=== PATIENT | male | born 1965 | race Caucasian/White ===

== ENCOUNTER 2023-01-01 22:21 | Inpatient (IN) | payer OTHER, SELFPAY ==
[2023-01-01 22:22] VITALS: BP 103/76; PULSE 93; RESP 15; TEMP 36.1; O2SAT 95; BMI 29.8
--- NOTE | 2023-01-01 22:44 | EX.ED.DYSGE1 ---
HPI History of Present Illness Chief Complaint: Hyperglycemia Narrative Narrative: 57-year-old male past medical history of hypertension and diabetes presents with his because of elevated blood sugars. He states he usually does not check his blood sugars but has felt fatigued over the last few days. Additionally, he had 1 episode of nausea and vomiting today. He did check his blood sugar and it read high. He waited about an hour, ate dinner, took his medication as he takes metformin to 1000 mg twice a day, then rechecked his blood sugars and it was down to the 600s. States he is mildly nauseated, but has not vomited since. He had an episode of loose stools today. He presents because of his elevated blood sugars. He states he does not take insulin for his diabetes, but does not check his blood sugars regularly because he does not like to prick his fingers and he has tough skin on his hands. [facility] Medical History Diabetes Hypertension Home Medications hydrochlorothiazide 12.5 mg tablet 12.5 mg PO DAILY 01/01/23 [History Last Taken Unknown] lisinopril 20 mg tablet 20 mg PO DAILY 01/01/23 [History Last Taken Unknown] metformin 500 mg tablet,extended release 24 hr 1,000 mg PO BID 01/01/23 [History Last Taken Unknown] Allergy/AdvReac Type Severity Reaction Status Date / Time No Known Allergies Allergy Verified 01/01/23 22:27 Social History Smoking Status: Current every day smoker tobacco type: cigarettes ROS ROS ED ROS Narrative Constitutional: No fever, no chills. Positive fatigue. HEENT: No sore throat. No neck pain. No loss of vision. No rhinorrhea. Cardiovascular: No chest pain. No palpitations. No pedal edema. Respiratory: No cough, no shortness of breath. Abdominal: No abdominal pain. 1 episode of nausea and vomiting today, no hematemesis. Positive loose stools today. Genitourinary: No dysuria. No hematuria. Musculoskeletal: No myalgias. No arthralgias. Neurologic: No headaches. No dizziness. No lightheadedness. Skin: No rash. No change in color. Psychiatric: No depression. No anxiety. EXAM Physical Exam Narrative Exam Narrative: Afebrile. Vital signs noted. HEENT: Normocephalic. Atraumatic. PERRL, EOMI. Neck soft and supple. No point tenderness or step off. Cardiovascular: Regular rate and rhythm. No murmurs, rubs, or gallops appreciated. Respiratory: No tachypnea. Lungs clear to auscultation bilaterally. Gastrointestinal: Abdomen soft, nontender, with normoactive bowel sounds. No rebound or guarding. Neurological: Awake. Alert. Nonfocal, nonlateralizing. Skin: No rash. Normal color. No pallor. Musculoskeletal: No pedal edema. Full range of motion extremities. Const Vital Signs: 01/01/23 22:22 01/01/23 22:39 01/02/23 00:41 Temperature 96.9 F L Temperature Source Temporal Pulse Rate 93 82 Respiratory Rate 15 16 Respiratory Effort Normal Non-Labored Respiratory Pattern Normal Blood Pressure 103/76 142/68 H Blood Pressure Mean 85 92 Pulse Ox 95 99 Oxygen Delivery Method Room Air Room Air MDM MDM MDM Narrative Medical decision making narrative: I do feel that the patient is having an episode of diabetic hyperglycemia. He did not do any diet modification recently and never checks his blood sugars. He may be a candidate for constant glucose monitoring with a new systems that are electronic and inserted on the arm or other parts of the body. Today, he will be bolused 2 L of normal saline intravenously and I will check a CBC and CMP. I will only add a acetone if necessary if he has an elevated anion gap, and I will check a urinalysis as well. He was instructed on diet modification. I reviewed his laboratory work he does have a slightly elevated white count of 17.7 which I think is nonspecific, hemoglobin normal at 14.8, hematocrit 43.6, platelet count normal at 244. His sodium is low at 127 but I think this is secondary to his glucose being elevated at 519 on his BMP. He has a potassium of 6.1, but this is hemolyzed. Repeat will be drawn and is pending. In review of his EKG interpreted by myself shows normal sinus rhythm at 73 bpm without ectopy or acute ST changes. Minimally peaked T waves. I do not feel that calcium gluconate is indicated however. He will be given 10 units of insulin for his elevated sugar and the hyperkalemia. After a bolus of IV fluids, his blood sugars in the 400s/482 by fingerstick. His urinalysis is negative for infection or ketones, I do not feel that he is in a diabetic ketoacidosis. Additionally, he has a normal anion gap of 8. Of significance is his elevated creatinine of 3.85. There is no prior to compare. Given his hyperglycemia, hyperkalemia, and acute kidney injury, I do feel that he requires admission. Patient will be discussed with Dr. Ho for admission. Patient is in stable condition. History & Record Review Discussion w/independent historian: Patient and Family Additional record(s) reviewed:: No prior records Lab Data Attestation: I reviewed the patient's lab results. Labs: Laboratory Results - last 24 hr 01/01/23 01/01/23 01/01/23 00:05 22:52 23:08 WBC 17.7 H RBC 4.88 Hgb 14.8 Hct 43.6 MCV 89.3 MCH 30.3 MCHC 33.9 RDW Std Deviation 47.5 H RDW Coeff of Del 14.6 Plt Count 244 MPV 12.8 H Immature Gran % (Auto) 0.600 Neut % (Auto) 86.9 H Lymph % (Auto) 8.1 L [place] % (Auto) 4.1 Eos % (Auto) 0.1 Baso % (Auto) 0.2 Absolute Neuts (auto) 15.4 H Absolute Lymphs (auto) 1.44 Nucleated RBC % 0 Sodium 127 L Potassium 5.4 H 6.1 H* Chloride 94 L Carbon Dioxide 25.0 Anion Gap 8 BUN 87 H Creatinine 3.85 H Estim Creat Clear Calc 21.17 Est GFR (MDRD) Af Amer 21 L Est GFR (MDRD) Non-Af 17 L BUN/Creatinine Ratio 22.6 H Glucose 519 H* Calcium 9.4 Total Bilirubin 0.30 AST 20 ALT 33 Alkaline Phosphatase 103 Total Protein 7.6 Albumin 3.6 Globulin 4.0 Albumin/Globulin Ratio 0.9 Urine Color Urine Clarity Urine pH Ur Specific [place] Urine Protein Urine Glucose (UA) Urine Ketones Urine Occult Blood Urine Nitrite Urine Bilirubin Urine Urobilinogen Ur Leukocyte Esterase Urine RBC Urine WBC Ur Squamous Epith Cells Urine Bacteria Urine Mucus POC Glucose > 500 H* 01/01/23 01/02/23 23:10 00:07 WBC RBC Hgb Hct MCV MCH MCHC RDW Std Deviation RDW Coeff of Del Plt Count MPV Immature Gran % (Auto) Neut % (Auto) Lymph % (Auto) [place] % (Auto) Eos % (Auto) Baso % (Auto) Absolute Neuts (auto) Absolute Lymphs (auto) Nucleated RBC % Sodium Potassium Chloride Carbon Dioxide Anion Gap BUN Creatinine Estim Creat Clear Calc Est GFR (MDRD) Af Amer Est GFR (MDRD) Non-Af BUN/Creatinine Ratio Glucose Calcium Total Bilirubin AST ALT Alkaline Phosphatase Total Protein Albumin Globulin Albumin/Globulin Ratio Urine Color Yellow Urine Clarity Clear Urine pH 5.0 Ur Specific [place] 1.015 Urine Protein 30 H Urine Glucose (UA) 1000 H Urine Ketones Negative Urine Occult Blood 50 H Urine Nitrite Negative Urine Bilirubin Negative Urine Urobilinogen Normal Ur Leukocyte Esterase Negative Urine RBC 0 SEEN Urine WBC 0 SEEN Ur Squamous Epith Cells 0 SEEN Urine Bacteria 0 SEEN Urine Mucus 0 SEEN POC Glucose 482 H* Discharge Plan Dx/Rx/DC Orders Clinical Impression: Hyperglycemia, Acute kidney injury, Hyperkalemia Disposition Disposition: Acute Care Hospital [facility]
[2023-01-01 22:58] LABS: Absolute Lymphocyte Count 1.44 X10^3/uL (0.83-4.51); Absolute Neutrophil Count 15.4 X10^3/uL (2.0-7.7); Basophil# 0.03 X10^3/uL; Basophil% 0.2 % (0-1); Eosinophil# 0.01 X10^3/uL; Eosinophils% 0.1 % (0-5); Hematocrit 43.6 % (40-54); Hemoglobin 14.8 g/dL (13.0-16.5); Lymphocyte # 1.44 X10^3/ul (0.83-4.51); Lymphocyte % 8.1 % (19-41); Mean Corp Hgb Conc 33.9 g/dL (32-36); Mean Corpuscular Hgb 30.3 pg (27.0-32.0); Mean Corpuscular Volume 89.3 fL (80-94); Mean Platelet Vol. 12.8 fl (6.2-12.0); Monocyte# 0.72 X10^3/uL; Monocyte% 4.1 % (0-10); NRBC Flagged by Analyzer 0 % (0-5); Neutrophil # 15.42 X10^3/uL (2.7-7.7); Neutrophil % 86.9 % (47-70); Platelet Count 244 K/mm3 (150-450); RBC Distribution Width CV 14.6 % (11.6-14.6); RBC Distribution Width SD 47.5 fl (35.1-43.9); Red Blood Count 4.88 M/mm3 (4.6-6.2); White Blood Count 17.7 K/mm3 (4.4-11.0)
[2023-01-01] MEDS: 0.9% Normal Saline 1,000 ML 999 ML IV (23:09)
[2023-01-01 23:16] LABS: Bacteria 0 SEEN /hpf (None Seen); Mucous, Urine 0 SEEN /hpf (<or=2+); Red Blood Cells-Urine 0 SEEN /hpf (0-5); Squamous Epithelial Cells - UA 0 SEEN /hpf (0-5); White Blood Cells 0 SEEN /hpf (0-5)
[2023-01-01 23:20] LABS: Color, Urine Yellow (Yellow); Glucose, Dipstick 1000 mg/dl (Normal); Ketone-Dipstick Negative (Negative); Leukocyte Esterase-Dipstick Negative /ul (Negative); Nitrite-Dipstick Negative (Negative); Occult Blood-Urine 50 /ul (Negative); Protein-Dipstick 30 mg/dl (Negative); Specific Gravity, Urine 1.015 (1.002-1.030); Urine Bilirubin Dipstick Negative (Negative); Urine Clarity Clear (Clear); Urine Urobilinogen Normal (Normal)
[2023-01-01 23:28] LABS: Bedside Glucose > 500 mg/dL (74-106)
[2023-01-01 23:42] LABS: ALB/GLOB Ratio 0.9 RATIO (0.9-2.4); AST(SGOT) 20 U/L (15-37); Alanine Aminotransfer ALT/SGPT 33 U/L (16-61); Albumin, Serum 3.6 g/dL (3.2-5.0); Alkaline Phosphatase 103 U/L (45-117); Anion Gap 8 (5-15); BUN 87 mg/dL (7-18); BUN/Creat Ratio 22.6 RATIO (10-20); Calcium,Total 9.4 mg/dL (8.5-10.1); Chloride 94 mmol/L (98-107); Creatinine, Serum 3.85 mg/dL (0.70-1.30); EST Glomerular Filtration Rate 17 mL/min (>60); Est Glom Filt Rate - Afr Amer 21 mL/min (>60); Estimated Creatinine Clearance 21.17 ml/min; Glucose 519 mg/dL (74-106); Potassium 6.1 mmol/L (3.5-5.1); Protein, Total 7.6 g/dL (6.4-8.2); Sodium Level 127 mmol/L (136-145)
--- NOTE | 2023-01-01 23:44 | EKG12_ITS ---
Test Reason : HYPERGLYCEMIA Blood Pressure : / mmHG Vent. Rate : 073 BPM Atrial Rate : 073 BPM P-R Int : 130 ms QRS Dur : 104 ms QT Int : 370 ms P-R-T Axes : 048 046 024 degrees QTc Int : 407 ms Normal sinus rhythm Normal ECG Confirmed by EMILY ARCEO, PETERSON ([id number]), photography editor HOWIE KENNEDY ([id number]) on 01/03/2023 12:26:13 P M Referred By: Tashi Ho Confirmed By:GENEVIEVE DIAZ MD
[2023-01-02] VITALS (9 sets, daily range): BP systolic 117–143; BP diastolic 66–81; PULSE 57–82; RESP 16–18; TEMP 36.1–36.8; O2SAT 94–100; BMI 30.1
[2023-01-02] MEDS: 0.9% Normal Saline 1,000 ML 999 ML IV (00:10)
[2023-01-02 00:24] LABS: Bedside Glucose 482 mg/dL (74-106)
[2023-01-02 00:29] LABS: Potassium 5.4 mmol/L (3.5-5.1)
--- NOTE | 2023-01-02 01:20 | PCM.HP.STD ---
HPI - General General Date of Admission: 01/02/23 Date of Service: 01/02/23 Chief Complaint: nausea and vomiting HPI Narrative NINFA LATHAM, is a 57 M with a significant history of diabetes and HTN who presents to the emergency department with nausea vomiting and diarrhea. Associated with symptoms is polyuria. He does not use insulin at home. At the emergency department his blood glucose initially read high. [facility] Medical History Diabetes Hypertension Home Medications hydrochlorothiazide 12.5 mg tablet 12.5 mg PO DAILY 01/01/23 [History Last Taken Unknown] lisinopril 20 mg tablet 20 mg PO DAILY 01/01/23 [History Last Taken Unknown] metformin 500 mg tablet,extended release 24 hr 1,000 mg PO BID 01/01/23 [History Last Taken Unknown] Allergy/AdvReac Type Severity Reaction Status Date / Time No Known Allergies Allergy Verified 01/01/23 22:27 Social History Smoking Status: Current every day smoker tobacco type: cigarettes ROS ROS Narrative Pertinent positives and pertinent negatives as noted in HPI. All other systems were reviewed and are negative Vital Signs Vital Signs Vital Signs: 01/01/23 22:22 01/01/23 22:39 01/02/23 00:41 Temperature 96.9 F L Temperature Source Temporal Pulse Rate 93 82 Respiratory Rate 15 16 Respiratory Effort Normal Non-Labored Respiratory Pattern Normal Blood Pressure 103/76 142/68 H Blood Pressure Mean 85 92 Pulse Ox 95 99 Oxygen Delivery Method Room Air Room Air Weight Weight: 91.626 kg Body Mass Index (BMI) 29.8 Physical Exam Narrative Physical exam: General: Well-nourished, well-developed. Head: Normocephalic, atraumatic, no tenderness Eyes: Vision is grossly intact. EOMI ENT, no trauma, moist mucous membranes, no rhinorrhea Neck: Nontender, No thyromegaly. CVS: Regular rate and rhythm. S1-S2 present. No murmur, gallop or rub. Respiratory : clear to auscultation bilaterally, chest wall nontender Abdomen: Soft, nontender, nondistended, normal bowel sounds, no masses : Deferred Back: Nontender, no CVA tenderness, no midline spinal tenderness, deformities, step-offs Extremities: Nontender full range of motion, no trauma Skin: Normal color, no trauma, abrasions Neuro: Alert, oriented, cranial nerves II through XII grossly intact. Psychiatry: Normal mood. Normal affect. Not depressed. Not anxious. Results Lab / Micro Data 01/02/23 05:36 01/02/23 05:36 Labs: Laboratory Results - last 24 hr 01/01/23 00:05: Potassium 5.4 H 01/01/23 22:52: WBC 17.7 H, RBC 4.88, Hgb 14.8, Hct 43.6, MCV 89.3, MCH 30.3, MCHC 33.9, RDW Std Deviation 47.5 H, RDW Coeff of Del 14.6, Plt Count 244, MPV 12.8 H, Immature Gran % (Auto) 0.600, Neut % (Auto) 86.9 H, Lymph % (Auto) 8.1 L, [place] % (Auto) 4.1, Eos % (Auto) 0.1, Baso % (Auto) 0.2, Absolute Neuts (auto) 15.4 H, Absolute Lymphs (auto) 1.44, Nucleated RBC % 0, Sodium 127 L, Potassium 6.1 H*, Chloride 94 L, Carbon Dioxide 25.0, Anion Gap 8, BUN 87 H, Creatinine 3.85 H, Estim Creat Clear Calc 21.17, Est GFR (MDRD) Af Amer 21 L, Est GFR (MDRD) Non-Af 17 L, BUN/Creatinine Ratio 22.6 H, Glucose 519 H*, Calcium 9.4, Total Bilirubin 0.30, AST 20, ALT 33, Alkaline Phosphatase 103, Total Protein 7.6, Albumin 3.6, Globulin 4.0, Albumin/Globulin Ratio 0.9 01/01/23 23:08: POC Glucose > 500 H* 01/01/23 23:10: Urine Color Yellow, Urine Clarity Clear, Urine pH 5.0, Ur Specific [place] 1.015, Urine Protein 30 H, Urine Glucose (UA) 1000 H, Urine Ketones Negative, Urine Occult Blood 50 H, Urine Nitrite Negative, Urine Bilirubin Negative, Urine Urobilinogen Normal, Ur Leukocyte Esterase Negative, Urine RBC 0 SEEN, Urine WBC 0 SEEN, Ur Squamous Epith Cells 0 SEEN, Urine Bacteria 0 SEEN, Urine Mucus 0 SEEN 01/02/23 00:07: POC Glucose 482 H* Assessment & Plan Assessment/Plan (1) Hyperglycemia: (2) Hyperkalemia: (3) Acute kidney injury: PLAN: Plan Diabetes mellitus with hyperglycemia Initial blood glucose of more than 500. With IV fluids blood glucose decreased to 242. IV fluids continued. Accu-Chek with correction scale insulin ordered. Hyperkalemia Initial potassium was 6.1. With IV fluids potassium decreased to 4.7. Trend BMP. MICHELLE Creatinine presentation was 3.85. Review of community records show that on 10/16/2022 his creatinine was 0.94 and GFR was 95. BUN 87. BUN over creatinine 22.6. Likely prerenal. IV hydration. Trend BMP. DVT prophylaxis Subcutaneous heparin ordered. Time spent in the patient's overall evaluation,decision-making process, review of diagnostic data, adjustment of management, discussion with other providers, nursing nursing and ancillary staff involved in patient's care documentation, 44 minutes. Charges/Coding Visit Charges Inpatient E&M: 26931 Init Hosp L2
[2023-01-02 01:32] LABS: Bedside Glucose 242 mg/dL (74-106)
[2023-01-02] MEDS: 0.9% Normal Saline 1,000 ML 100 ML IV ×3 (03:33→21:32)
[2023-01-02 03:47] LABS: Bedside Glucose 207 mg/dL (74-106)
[2023-01-02 06:35] LABS: Absolute Lymphocyte Count 2.37 X10^3/uL (0.83-4.51); Absolute Neutrophil Count 11.2 X10^3/uL (2.0-7.7); Basophil# 0.03 X10^3/uL; Basophil% 0.2 % (0-1); Eosinophil# 0.06 X10^3/uL; Eosinophils% 0.4 % (0-5); Hematocrit 39.8 % (40-54); Hemoglobin 13.1 g/dL (13.0-16.5); Lymphocyte # 2.37 X10^3/ul (0.83-4.51); Lymphocyte % 16.3 % (19-41); Mean Corp Hgb Conc 32.9 g/dL (32-36); Mean Corpuscular Hgb 29.9 pg (27.0-32.0); Mean Corpuscular Volume 90.9 fL (80-94); Monocyte# 0.76 X10^3/uL; Monocyte% 5.2 % (0-10); NRBC Flagged by Analyzer 0 % (0-5); Neutrophil # 11.23 X10^3/uL (2.7-7.7); Neutrophil % 77.4 % (47-70); Platelet Count 196 K/mm3 (150-450); RBC Distribution Width CV 14.9 % (11.6-14.6); RBC Distribution Width SD 49.3 fl (35.1-43.9); Red Blood Count 4.38 M/mm3 (4.6-6.2); White Blood Count 14.5 K/mm3 (4.4-11.0)
[2023-01-02] MEDS: Insulin Lispro 100 UNIT/ML INSULN.PEN SC ×4 (06:45→21:25)
[2023-01-02] MEDS: Heparin Injection (Vial) 5,000 UNIT/ML VIAL 5000 UNIT SC ×3 (06:45→21:20)
[2023-01-02 06:56] LABS: Bedside Glucose 216 mg/dL (74-106)
[2023-01-02 07:34] LABS: Anion Gap 8 (5-15); BUN 79 mg/dL (7-18); BUN/Creat Ratio 29.3 RATIO (10-20); Calcium,Total 8.8 mg/dL (8.5-10.1); Chloride 107 mmol/L (98-107); EST Glomerular Filtration Rate 26 mL/min (>60); Est Glom Filt Rate - Afr Amer 31 mL/min (>60); Estimated Creatinine Clearance 30.19 ml/min; Glucose 208 mg/dL (74-106); Potassium 4.7 mmol/L (3.5-5.1); Sodium Level 136 mmol/L (136-145)
--- NOTE | 2023-01-02 07:56 | PN.HOSP_ITS ---
Hospitalist Note Patient is a 57-year-old white male who presented to the emergency department with hyperglycemia. He has a known history of diabetes and takes metformin 1000 mg p.o. twice daily at home. He has never taken insulin for diabetes and reported he was not checking his blood sugars regularly because he does not like to stick his fingers. He felt fatigued over the last several days and had an episode of nausea and vomiting on the day of presentation. He did check his blood sugar because he was feeling poorly and it read high. He stated he w aited about an hour and ate dinner then took his medications and rechecked his blood sugar and it was reading 600 on his meter. He then decided to come to the emergency department. On presentation he reported mild nausea but no vomiting. On presentation his temperature was 96.9, respiratory rate was 15, heart rate 93, blood pressure was 103/76 and oxygen saturation was 95% on room air. His BMP showed a leukocytosis at 17.7 with a left shift, hyponatremia however this is pseudohyponatremia as his serum glucose was 519, potassium level of 6.1, BUN of 87 and serum creatinine of 3.85. Baseline is unknown as there is no previous data on records. EKG at the time of admission showed minimally peaked T waves and he was given 10 units of insulin for his elevated blood sugars and to treat the hyperkalemia and an IV fluid bolus of 1 L. His UA was unremarkable and he had a normal anion gap and a bicarb of 25 on presentation. He was admitted to the medical floor placed on a sliding scale, his home medications including hydrochlorothiazide, lisinopril and metformin were held. He was given IV fluids and a sliding scale was initially utilized. I have ordered an A1c to be done in the morning. I started Lantus 10 units subcu daily as his current glucose is 208. His white count is trending down just with hydration I feel that was likely elevated due to dehydration. His potassium has normalized and his serum creatinine is down from 3.85-2.70 just with hydration and holding his HCTZ and lisinopril. I started hydralazine IV 10 every 6 as needed for systolic blood pressure greater than 160. Clinically he seems to be improving.
[2023-01-02] MEDS: Insulin Glargine-YFGN 100 UNIT/ML Pen 10 UNIT SC (10:44)
[2023-01-02 12:27] LABS: Bedside Glucose 307 mg/dL (74-106)
[2023-01-02 18:13] LABS: Bedside Glucose 281 mg/dL (74-106)
[2023-01-03 00:26] LABS: Bedside Glucose 295 mg/dL (74-106)
[2023-01-03 04:45] VITALS: BP 132/70; PULSE 62; RESP 18; TEMP 36.6; O2SAT 97
[2023-01-03] MEDS: Insulin Lispro 100 UNIT/ML INSULN.PEN SC ×3 (06:24→16:49)
[2023-01-03] MEDS: Heparin Injection (Vial) 5,000 UNIT/ML VIAL 5000 UNIT SC ×2 (06:25→15:00)
[2023-01-03 06:30] LABS: Absolute Lymphocyte Count 4.37 X10^3/uL (0.83-4.51); Absolute Neutrophil Count 4.6 X10^3/uL (2.0-7.7); Basophil# 0.03 X10^3/uL; Basophil% 0.3 % (0-1); Eosinophil# 0.09 X10^3/uL; Eosinophils% 0.9 % (0-5); Hematocrit 40.4 % (40-54); Lymphocyte # 4.37 X10^3/ul (0.83-4.51); Lymphocyte % 44.9 % (19-41); Mean Corp Hgb Conc 32.2 g/dL (32-36); Mean Corpuscular Hgb 29.5 pg (27.0-32.0); Mean Corpuscular Volume 91.8 fL (80-94); Mean Platelet Vol. 12.5 fl (6.2-12.0); Monocyte# 0.59 X10^3/uL; Monocyte% 6.1 % (0-10); NRBC Flagged by Analyzer 0 % (0-5); Neutrophil # 4.63 X10^3/uL (2.7-7.7); Neutrophil % 47.6 % (47-70); Platelet Count 192 K/mm3 (150-450); RBC Distribution Width CV 14.7 % (11.6-14.6); RBC Distribution Width SD 49.6 fl (35.1-43.9); White Blood Count 9.7 K/mm3 (4.4-11.0)
[2023-01-03] MEDS: 0.9% Normal Saline 1,000 ML 100 ML IV (06:42)
[2023-01-03 07:07] LABS: Anion Gap 4 (5-15); BUN 51 mg/dL (7-18); BUN/Creat Ratio 31.1 RATIO (10-20); Calcium,Total 8.5 mg/dL (8.5-10.1); Chloride 109 mmol/L (98-107); Creatinine, Serum 1.64 mg/dL (0.70-1.30); EST Glomerular Filtration Rate 46 mL/min (>60); Est Glom Filt Rate - Afr Amer 56 mL/min (>60); Glucose 148 mg/dL (74-106); Magnesium 1.9 mg/dL (1.6-2.6); Phosphorus 2.6 mg/dL (2.5-4.9); Potassium 4.9 mmol/L (3.5-5.1); Sodium Level 135 mmol/L (136-145); Thyroid Stim Hormone (TSH) 1.68 uIU/mL (0.358-3.74)
[2023-01-03 07:13] LABS: Bedside Glucose 173 mg/dL (74-106)
[2023-01-03 08:07] LABS: Hemoglobin A1c 10.1 % (3.8-5.6)
--- NOTE | 2023-01-03 08:37 | PCM.PN.HOSP ---
Reason for Visit Reason for Visit: Diagnoses Hyperkalemia (01/02/23) Acute kidney failure, unspecified (01/02/23) Hyperglycemia, unspecified (01/02/23) Subjective Subjective Feels well. Eating. Objective Data Objective Data Vital Signs: Vital Signs Temp Pulse Resp BP Pulse Ox O2 Del Method 36.6 C 62 18 132/70 H 97 Room Air 01/03/23 04:45 01/03/23 04:45 01/03/23 04:45 01/03/23 04:45 01/03/23 04:45 01/03/23 04:45 Oxygen Delivery Method Room Air Weight: 92.6 kg Body Mass Index (BMI) 30.1 Intake & Output: Intake and Output for Last 24 Hours 01/01/23 01/02/23 01/03/23 23:59 23:59 23:59 Intake Total 4808.33 / 4808.33 916.67 / 916.67 Balance 4808.33 / 4808.33 916.67 / 916.67 Lab / Micro Data 01/03/23 05:20 01/03/23 05:20 Labs: Laboratory Results - last 24 hr 01/02/23 10:42: POC Glucose 307 H 01/02/23 17:51: POC Glucose 281 H 01/02/23 21:25: POC Glucose 295 H 01/03/23 05:20: WBC 9.7, RBC 4.40 L, Hgb 13.0, Hct 40.4, MCV 91.8, MCH 29.5, MCHC 32.2, RDW Std Deviation 49.6 H, RDW Coeff of Del 14.7 H, Plt Count 192, MPV 12.5 H, Immature Gran % (Auto) 0.200, Neut % (Auto) 47.6, Lymph % (Auto) 44.9 H, [place] % (Auto) 6.1, Eos % (Auto) 0.9, Baso % (Auto) 0.3, Absolute Neuts (auto) 4.6, Absolute Lymphs (auto) 4.37, Nucleated RBC % 0, Sodium 135 L, Potassium 4.9, Chloride 109 H, Carbon Dioxide 22.0, Anion Gap 4 L, BUN 51 H, Creatinine 1.64 H, Estim Creat Clear Calc 49.70, Est GFR (MDRD) Af Amer 56 L, Est GFR (MDRD) Non-Af 46 L, BUN/Creatinine Ratio 31.1 H, Glucose 148 H, Hemoglobin A1c 10.1 H, Calcium 8.5, Phosphorus 2.6, Magnesium 1.9, TSH 1.68 01/03/23 06:23: POC Glucose 173 H Physical Exam Const alert HEENT head/scalp atraumatic and moist oral mucous membranes Resp normal respiratory effort, no retractions, no use of accessory muscles and clear to auscultation bilaterally Cardio regular rate, regular rhythm, S1 normal heart sound and S2 normal heart sound GI normal to inspection, nondistended, normoactive bowel sounds, soft to palpation, non-tender and non-distended Assessment & Plan Assessment/Plan (1) Acute kidney injury: PLAN: Creatinine presentation was 3.85. Review of community records show that on 10/16/2022 his creatinine was 0.94 and GFR was 95. BUN 87. BUN over creatinine 22.6. Likely prerenal. IV hydration. Trend BMP. (2) Hyperglycemia: PLAN: Diabetes mellitus with hyperglycemia Initial blood glucose of more than 500. With IV fluids blood glucose decreased to 242. IV fluids continued. A1c 10.1 Pt states that he doesn't check his blood sugar often. Continue metformin 1000 BID. Add glyburide. I am concerned pt may have to go on insulin if continues to be uncontrolled. (3) Hyperkalemia: PLAN: Hyperkalemia Initial potassium was 6.1. With IV fluids potassium decreased to 4.7. Trend BMP. PLAN: Plan DVT prophylaxis Subcutaneous heparin ordered. Charges/Coding Visit Charges Inpatient E&M: 20745 Subs Hosp L2
[2023-01-03] MEDS: Insulin Glargine-YFGN 100 UNIT/ML Pen 10 UNIT SC (10:12)
[2023-01-03] MEDS: 0.9% Saline Lock 10 ML Syringe IV (10:15)
[2023-01-03 10:30] VITALS: BP 129/72; PULSE 64; RESP 18; TEMP 35.8; O2SAT 97
[2023-01-03 10:48] LABS: Bedside Glucose 295 mg/dL (74-106)
--- NOTE | 2023-01-03 11:55 | CASEMGMT ---
RN MATEO Face to Face with patient for initial transition planning/care coordination assessment. RN CM introduced self and role at [facility]. Patient lying in bed, alert and oriented. Patient willing to participate in assessment and is able to answer all questions appropriately. Care providers, pharmacy, and demographics verified. Patient wishes to discharge home, denies need for home health at this time. Patient states he has no further needs or concerns at this time. CM to follow for discharge planning needs that may arise. PCP: Connor Specialists: none Preferred Pharmacy: [facility] Insurance: [employer] Prescription Benefit: yes Living Will/HPOA: none LNOK: Living Arrangements: Patient lives with in 2 story home. Patient is independent and able to ambulate stairs. Transportation: self, DME/HHC: Patient denies DME in the home. No previous HHC or SNF. Disposition Plan: Patient to discharge home with family support and follow-up plans in place. Arabella BENTON, RN, CM
--- NOTE | 2023-01-03 14:14 | DCINST_ITS ---
Discharge Instructions Diet Discharge Diet: 2000 Calorie Control Diet Follow Up Care Test Results: Test results from this visit will be discussed in further detail at your follow- up appointment, if applicable. Discharge Plan Admission Admit Date/Time: 01/02/23 02:05 Primary Reason for Your Visit: acute kidney injury Attending Provider: Shiv Wadsworth Primary Care Provider: Paulino Ryan Consulting Providers: Tashi Ho; Gabby Cabrera Instructions Patient Instructions: Diabetes Food Shop Meals Prep, Diabetes Support, Diabetes Inspect Feet Additional Instructions / Restrictions: You presented with dehydration and acute kidney injury. This improved with IV fluids. Additionally, your glucose (blood sugar) was very high upon pr esentation. Your A1c is greater than 10 (it should be 6 or less). Continue taking metformin, but also glyburide. Check you blood sugars daily and keep a record to present to your primary care physician. If your blood sugars continue to be uncontrolled you may require insulin. Discharge Orders/Prescriptions Prescriptions: New glyburide 5 mg tablet 5 mg PO BID Qty: 60 0RF Continued lisinopril 20 mg tablet 20 mg PO DAILY metformin 500 mg tablet extended release 24 hr 1,000 mg PO BID Patient Comments: Take 2 tablets by mouth twice daily with meals. Discontinued hydrochlorothiazide 12.5 mg tablet 12.5 mg PO DAILY Patient Comments: Take 1 tablet by mouth once daily. Referrals / Follow Up: Paulino Ryan MD [Primary Care Provider] - Within 2 Weeks Disposition Disposition (needs filled in before D/C Order can be placed): Home, Self Care
--- NOTE | 2023-01-03 14:21 | PCM.DC.SUM ---
Providers Date of Admission: 01/02/23 Primary Care Physician: Dr. Paulino Ryan MD Reason For Visit: MICHELLE Diagnosis Discharge Diagnosis (1) Acute kidney injury: Status: Acute Code(s): N17.9 - Acute kidney failure, unspecified Plan: Creatinine presentation was 3.85. Review of community records show that on 10/16/2022 his creatinine was 0.94 and GFR was 95. BUN 87. BUN over creatinine 22.6. Likely prerenal. IV hydration. Trend BMP. (2) Hyperglycemia: Status: Acute Code(s): R73.9 - Hyperglycemia, unspecified Plan: Diabetes mellitus with hyperglycemia Initial blood glucose of more than 500. With IV fluids blood glucose decreased to 242. IV fluids continued. A1c 10.1 Pt states that he doesn't check his blood sugar often. Continue metformin 1000 BID. Add glyburide. I am concerned pt may have to go on insulin if continues to be uncontrolled. (3) Hyperkalemia: Status: Acute Code(s): E87.5 - Hyperkalemia Plan: Hyperkalemia Initial potassium was 6.1. With IV fluids potassium decreased to 4.7. Trend BMP. Plan DVT prophylaxis Subcutaneous heparin ordered. Medications at Discharge Home Medications lisinopril 20 mg tablet 20 mg PO DAILY 01/01/23 metformin 500 mg tablet,extended release 24 hr 1,000 mg PO BID 01/01/23 glyburide 5 mg tablet 5 mg PO BID #60 tabs 01/03/23 Hospital Course Operations None Procedures None Weight / BMI Weight Weight: 92.6 kg Body Mass Index (BMI) 30.1 ABG / Lab / Microbiology Data 01/03/23 05:20 01/03/23 05:20 Laboratory: Laboratory Results - last 24 hr 01/02/23 17:51: POC Glucose 281 H 01/02/23 21:25: POC Glucose 295 H 01/03/23 05:20: WBC 9.7, RBC 4.40 L, Hgb 13.0, Hct 40.4, MCV 91.8, MCH 29.5, MCHC 32.2, RDW Std Deviation 49.6 H, RDW Coeff of Del 14.7 H, Plt Count 192, MPV 12.5 H, Immature Gran % (Auto) 0.200, Neut % (Auto) 47.6, Lymph % (Auto) 44.9 H, Howard % (Auto) 6.1, Eos % (Auto) 0.9, Baso % (Auto) 0.3, Absolute Neuts (auto) 4.6, Absolute Lymphs (auto) 4.37, Nucleated RBC % 0, Sodium 135 L, Potassium 4.9, Chloride 109 H, Carbon Dioxide 22.0, Anion Gap 4 L, BUN 51 H, Creatinine 1.64 H, Estim Creat Clear Calc 49.70, Est GFR (MDRD) Af Amer 56 L, Est GFR (MDRD) Non-Af 46 L, BUN/Creatinine Ratio 31.1 H, Glucose 148 H, Hemoglobin A1c 10.1 H, Calcium 8.5, Phosphorus 2.6, Magnesium 1.9, TSH 1.68 01/03/23 06:23: POC Glucose 173 H 01/03/23 10:10: POC Glucose 295 H D/C Instructions Discharge Diet: 2000 Calorie Control Diet Meaningful Use Info Meaningful Use Diagnoses (Choose all that apply): None applicable Discharge Plan Admission Admit Date/Time: 01/02/23 02:05 Primary Reason for Your Visit: acute kidney injury Attending Provider: Shiv Wadsworth Primary Care Provider: Paulino Ryan Consulting Providers: Tashi Ho; Gabby Cabrera Instructions Patient Instructions: Diabetes Food Shop Meals Prep, Diabetes Support, Diabetes Inspect Feet Additional Instructions / Restrictions: You presented with dehydration and acute kidney injury. This improved with IV fluids. Additionally, your glucose (blood sugar) was very high upon presentation. Your A1c is greater than 10 (it should be 6 or less). Continue taking metformin, but also glyburide. Check you blood sugars daily and keep a record to present to your primary care physician. If your blood sugars continue to be uncontrolled you may require insulin. Discharge Orders/Prescriptions Prescriptions: New glyburide 5 mg tablet 5 mg PO BID Qty: 60 0RF Continued lisinopril 20 mg tablet 20 mg PO DAILY metformin 500 mg tablet extended release 24 hr 1,000 mg PO BID Patient Comments: Take 2 tablets by mouth twice daily with meals. Discontinued hydrochlorothiazide 12.5 mg tablet 12.5 mg PO DAILY Patient Comments: Take 1 tablet by mouth once daily. Referrals / Follow Up: Paulino Ryan MD [Primary Care Provider] - Within 2 Weeks Disposition Disposition (needs filled in before D/C Order can be placed): Home, Self Care Charges/Coding Visit Charges Inpatient E&M: 72150 Disch Hosp
--- NOTE | 2023-01-03 14:55 | PHA.DC.MC.R ---
Pharmacy [facility] has performed discharge medication reconciliation and counseling for this patient. 1. GLYBURIDE 5MG PO BID The patient's discharge medication list was reviewed for discrepancies and discrepancies were resolved. The patient was counseled on the following discharge medications and changes in medications for homegoing were reviewed. The Reason for Use, instructions for use, and potential side effects were reviewed for all new medications. The patient's questions regarding all of their medications were answered. The patient was able to verbally demonstrate an understanding of their discharge medications. Patient counseled by pharmacy informatics managerSamir. Medications at Discharge Home Medications lisinopril 20 mg tablet 20 mg PO DAILY 01/01/23 metformin 500 mg tablet,extended release 24 hr 1,000 mg PO BID 01/01/23 glyburide 5 mg tablet 5 mg PO BID #60 tabs 01/03/23
[2023-01-03 16:30] VITALS: BP 125/70; PULSE 67; RESP 16; TEMP 35.9; O2SAT 96
[2023-01-03 17:37] LABS: Bedside Glucose 166 mg/dL (74-106)
[2023-01-03 17:45] VITALS: BP 124/76; PULSE 69; RESP 16; TEMP 35.8; O2SAT 97
== END 2023-01-03 17:58 | disposition home or self-care (01) | DRG 638 ==
LOC: ED 01-02 00:29 → PCU 01-02 07:21
PROVIDERS: Internal Medicine; Admitting Provider Hospitalist; Emergency Provider Emergency Medicine; PCP Family Medicine; Referring Provider Hospitalist
DX: E11.65 Type 2 diabetes mellitus with hyperglycemia (principal); N17.9 Acute kidney failure, unspecified; I10 Essential (primary) hypertension; E87.5 Hyperkalemia; F17.210 Nicotine dependence, cigarettes, uncomplicated; E86.0 Dehydration; Z79.84 Long term (current) use of oral hypoglycemic drugs; Z79.899 Other long term (current) drug therapy
CPT/HCPCS: 36415; 80048; 80053; 81001; 82962; 83036; 83735; 84100; 84132; 84443; 85025; 93005; 97802; 99283; J7030; A4216